=== PATIENT | female | born 1970 | race Two or more races ===

== ENCOUNTER 2021-01-28 04:42 | Day surgery (SDC) | payer OTHER ==
[2021-01-24 12:36] VITALS: BMI 27.1
[2021-01-28] MEDS ORDERED: MIDAZOLAM HCL 2 MG/2 ML SINGLE DOSE VIAL ONE ×2 (13:53)
[2021-01-28] MEDS ORDERED: PROPOFOL 20 ML ONE ×2 (13:53→14:23)
[2021-01-28] MEDS ORDERED: PROMETHAZINE HCL 25 MG/1 ML VIAL IVPUSH PRN (15:03)
[2021-01-28] MEDS ORDERED: ONDANSETRON 4 MG/2 ML VIAL IVPUSH PRN (15:03)
[2021-01-28] MEDS ORDERED: oxyCODONE HCL 5 MG TABLET PO PRN (15:03)
[2021-01-28 16:23] VITALS: TEMP 97.7
[2021-01-28] MEDS ORDERED: ONDANSETRON 4 MG/2 ML VIAL ONE (16:35)
[2021-01-28 18:05] VITALS: BP 102/60; PULSE 56
== END 2021-01-28 18:05 | disposition home or self-care (01) ==
LOC: JASU-SURG 04:42
PROVIDERS: ATTEND Student in an Organized Health Care Education/Training Program
PROC: 0UDB7ZX Extraction of Endometrium, Via Natural or Artificial Opening, Diagnostic (ICD-10-PCS; 2021-01-28)
PROC: 0UB98ZX Excision of Uterus, Via Natural or Artificial Opening Endoscopic, Diagnostic (ICD-10-PCS; principal; 2021-01-28 14:00)
DX: N84.0 Polyp of corpus uteri (principal)
CPT/HCPCS: 86850; 86870; 86900; 86901; 86902; 88305-TC; 94760

== ENCOUNTER 2022-07-17 11:18 | Emergency (ER) | payer OTHER ==
[2022-07-17 11:24] VITALS: BP 149/68; PULSE 66; RESP 18; TEMP 98.3; BMI 26.9
[2022-07-17] MEDS ORDERED: DIPHTH,PERTUSS(ACELL),TET 0.5 ML DISP.SYRIN IM ONE ×2 (12:37→12:38)
[2022-07-17] MEDS ORDERED: BACITRACIN ZINC 15 GM TUBE TOPICAL OINTMENT ONE (12:48)
== END 2022-07-17 13:01 | disposition home or self-care (01) ==
LOC: JERFT 11:18
PROC: 3E0234Z Introduction of Serum, Toxoid and Vaccine into Muscle, Percutaneous Approach (ICD-10-PCS; principal; 2022-07-17)
DX: S61.101A Unspecified open wound of right thumb with damage to nail, initial encounter (principal); W27.4XXA Contact with kitchen utensil, initial encounter
CPT/HCPCS: 90715; 99283-25